=== PATIENT | female | born 1975 | race Caucasian/White ===

== ENCOUNTER → 2018-02-07 15:55 | Outpatient (CLI) | payer BC, SELFPAY | PROVIDERS: Visit Provider Nurse Practitioner Family | DX: R10.9 Unspecified abdominal pain (principal) | CPT/HCPCS: 87086; 87088; 87186 ==

== ENCOUNTER → 2018-07-17 14:29 | Outpatient (CLI) | payer BC, SELFPAY | PROVIDERS: Visit Provider Nurse Practitioner Family | DX: R30.0 Dysuria (principal) | CPT/HCPCS: 87086; 87088; 87186 ==

== ENCOUNTER → 2018-07-24 15:12 | Outpatient (CLI) | payer BC, SELFPAY ==
[2018-07-24 15:14] LABS: Microscopic, Urine URINE MICROSCOPIC (MICROSCOPIC)
[2018-07-24 15:26] LABS: Appearance,Urine CLEAR (Clear); Bilirubin,Urine Negative (Negative); Blood, Urine 1+ (Negative); Color,Urine YELLOW (Yellow); Glucose,Urine (UA) Negative (Negative); Ketones,Urine Negative (Negative); Leukocyte Esterase,Urine TRACE (Negative); Nitrate,Urine Negative (Negative); Protein,Urine Negative (Negative); Urobilinogen,Urine 0.2 EU/dl (0.2)
[2018-07-24 15:38] LABS: Bacteria,Urine 1+ /lpf; RBC,Urine Occasional #/hpf (0-3)
== END ==
PROVIDERS: Visit Provider Nurse Practitioner Family
DX: R30.0 Dysuria (principal)
CPT/HCPCS: 81001; 87086

== ENCOUNTER 2021-04-09 15:19 | Emergency (ER) | payer BC, SELFPAY ==
[2021-04-09 17:39] VITALS: BP 138/64; PULSE 81; RESP 18; TEMP 36.7; O2SAT 97; BMI 27.4
--- NOTE | 2021-04-09 17:49 | HMH.EDUTC ---
[facility] [facility] Disposition Clinical Impression: COVID-19 virus test result unknown Disposition: Home, Self-Care Condition on Discharge: Good Instructions: DI for COVID-19 (Suspected or Confirmed ), Preventing the Spread of Coronavirus Discharge Instructions Additional Instructions: covid swab was sent to lab, call later today for results. self isolate until test results are known to be negative No sign of a bacterial infection. Likely viral. Viruses can take 7-14 days to run their course. Nasal saline and bulb syringe or nose Ambar to remove nasal drainage to help with nasal congestion. Hard to eat, drink, sleep with nasal congestion so important to keep this cleaned out. Monitor temp. Tylenol or Motrin as needed for pain or fever Encourage fluids, water, Gatorade, Powerade, Pedialyte if /toddler/child Warm salt water gargles Warm fluids Sore throat lozenges Sleep elevated Humidifier/vaporizer Follow-up immediately for new or worsening symptoms or no noticeable improvement over the next 48-72 hours. Referrals: Ferny Bass MD [Primary Care Provider] - Time of Disposition: 17:56 Medical Decision Making - Brendon Inquiry Pt receiving controlled substance: No Vital Signs: 04/09/21 17:39 04/09/21 17:52 Temperature 98.1 F 98.1 F Temperature Source Oral Pulse Rate 81 Pulse Rate [Right Brachial] 81 Respiratory Rate 18 18 Blood Pressure 138/64 Blood Pressure [Right Arm] 138/64 Blood Pressure Mean [Right Arm] 88 Blood Pressure Source [Right Arm] Automatic Cuff Blood Pressure Position [Right Arm] Sitting 02 Sat by Pulse Oximetry 97 Oxygen Delivery Method Room Air Orders (Tests/Meds): ORDERS Category Date Time Status Covid-19 Nasal PCR ([facility]) Routine Lab 04/09/21 17:42 Ordered [facility] HPI - General Chief complaint: Urgent [facility] Stated complaint: covid test, poss sinus inf Time Seen by Provider: 04/09/21 17:49 Mode of Arrival: Ambulatory Source of Information: Patient Limitations: No Limitations Description of Symptoms (Recalled from Triage Doc. by RN): PATIENT C/O SINUS PRESSURE AND HEADACHE. RECENTLY TESTED POSITIVE FOR COVID HEENT Symptoms (Recalled from RN notes): Yes Resp Symptoms (Recalled from RN notes): No Skin Symptoms (Recalled from RN notes): No MS Symptoms (Recalled from RN notes): No Functional Status (Recalled from RN notes): WNL - History of Present Illness Provider Complaint: 45 yr old female presents for covid test. tested pos on wed. pt states she is having nasal congestion and headache - Related Data Allergies Allergy/AdvReac Type Severity Reaction Status Date / Time Iodinated Contrast Media Allergy Unknown I-RASH Verified 03/16/19 08:34 [Iodinated Contrast Media - Oral and] - Worker's Comp Is this a Worker's Comp case?: No [facility] History - Hepatitis A Screen Drug use history?: No High risk sexual behaviors?: No History of sexually transmitted infection?: No Currently employed?: No Childcare worker?: No Do you have indoor plumbing?: Yes Do you have electricity?: Yes Attestation statement:: This patient has been screened for Hepatitis A risk factors. I have reviewed the patient's past medical history: Yes Medical History: Reports:: Transient Ischemic Attacks (TIA) Denies:: Diabetes Mellitus Type 1, Diabetes Mellitus Type 2 Other Surgeries: Yes: Tubal Ligation, Other Amputation: No Fractures: No Comment: 2 Laparoscopy, 3 foot surgeries on right foot - Social History Smoking Status: Current every day smoker # Packs/Day (cigarettes): 1 Alcohol Intake: current Alcohol Intake Frequency:: holidays/special occasions only Substance Use Type: denies use Occupational Status: employed Comment: in room to review and discuss. talked w/pt. hearing test good. examined ears, TMJs (right slipping a little out of socket). examined nose and siniuses. Serous otitis media Family Hx:: No significant family history ROS Obtained
[2021-04-09 17:52] VITALS: BP 138/64; PULSE 81; RESP 18; TEMP 36.7; O2SAT 97
== END 2021-04-09 18:01 | disposition home or self-care (01) ==
PROVIDERS: Emergency Provider Nurse Practitioner Family; PCP Emergency Medicine
DX: Z20.822 Contact with and (suspected) exposure to COVID-19 (principal); R51.9 Headache, unspecified; R09.81 Nasal congestion; F17.210 Nicotine dependence, cigarettes, uncomplicated
CPT/HCPCS: 99202; G0463; U0003

== ENCOUNTER → 2021-08-31 14:20 | Outpatient (CLI) | payer BC, SELFPAY | PROVIDERS: Visit Provider Nurse Practitioner | DX: Z20.822 Contact with and (suspected) exposure to COVID-19 (principal) | CPT/HCPCS: C9803; U0003; U0005 ==

== ENCOUNTER → 2021-09-05 14:19 | Outpatient (CLI) | payer BC, SELFPAY ==
[2021-09-05 14:44] LABS: Adenovirus,PCR Not Detected (NotDetected); Bordetella Pertussis Not Detected (NotDetected); Chlamydophila Pneumoniae, PCR Not Detected (NotDetected); Coronavirus 19, PCR Not Detected (NotDetected); Coronavirus 229E Not Detected (NotDetected); Coronavirus NL63 Not Detected (NotDetected); Coronavirus OC43 Not Detected (NotDetected); Coronovirus HKU1,PCR Not Detected (NotDetected); Human Metapneumovirus Not Detected (NotDetected); Influenza A, PCR Not Detected (NotDetected); Influenza AH1, 2009 Not Detected (NotDetected); Influenza AH1, PCR Not Detected (NotDetected); Influenza AH3,PCR Not Detected (NotDetected); Influenza B, PCR Not Detected (NotDetected); Mycoplasma Pneumoniae, PCR Not Detected (NotDetected); Parainfluenza 1, PCR Not Detected (NotDetected); Parainfluenza 2, PCR Not Detected (NotDetected); Parainfluenza 3, PCR Not Detected (NotDetected); Parainfluenza 4, PCR Not Detected (NotDetected); Respiratory Syncytial Virus Not Detected (NotDetected); Rhinovirus/Enterovirus Not Detected (NotDetected)
== END ==
PROVIDERS: Visit Provider Physician Assistant
DX: J06.9 Acute upper respiratory infection, unspecified (principal); Z20.822 Contact with and (suspected) exposure to COVID-19
CPT/HCPCS: 87581; 87632; 87798; C9803; U0003; U0005

== ENCOUNTER 2022-05-03 16:51 | Emergency (ER) | payer BC, SELFPAY ==
[2022-05-03 16:53] VITALS: BP 126/87; PULSE 81; RESP 16; TEMP 36.6; O2SAT 98; BMI 26.7
[2022-05-03 17:43] VITALS: BP 127/73; PULSE 80; RESP 16; O2SAT 98
--- NOTE | 2022-05-03 17:43 | PC.NURSE ---
re cycle vitals. no needs at this time
--- NOTE | 2022-05-03 18:13 | XR_ITS ---
PROCEDURE INFORMATION: Exam: XR Left Foot Exam date and time: 05/03/2022 6:17 PM Age: 46 years old Clinical indication: Pain; Foot; Left; Additional info: Painful sore on foot, R/O fb TECHNIQUE: Imaging protocol: Radiologic exam of the Left foot. Views: 3 or more views. COMPARISON: No relevant prior studies available. FINDINGS: Bones/joints: There is an old healed 3rd metatarsal diaphyseal fracture with mild residual bony deformity. There are multiple ovoid calcifications along the lateral hindfoot and midfoot, likely accessory peroneal ossicle and sesamoid bones, though these could be other chronic dystrophic soft tissue calcifications. These do not have the appearance of acute fractures.No acute fracture or dislocation. There are no lytic skeletal lesions seen. There is an Achilles calcaneal spur. Soft tissues: No radiopaque foreign bodies seen. No soft tissue emphysema. IMPRESSION: 1. No radiopaque foreign body is seen in the soft tissues. No soft tissue emphysema. 2. No findings of osteomyelitis. 3. Old healed 3rd metatarsal diaphyseal fracture. 4. Chronic degenerative changes, as above.
--- NOTE | 2022-05-03 18:13 | HMH.EDGENADL ---
Discharge Plan Disposition Patient Disposition: Home, Self-Care Condition: Good Prescriptions Prescriptions: No Action Mediplast Uppw-Guekgi-Zcsp 40 % adhesive patch,medicated 1 applic topical Q48H Qty: 25 0RF Referrals Follow up/Referrals: Ying Spring PA [Primary Care Provider] - See instructions Elysia Jorge DPM [Staff Physician] - See instructions Activity Restrictions/Add. Instructions Additional Instructions/Restrictions: Follow-up with Dr. Jorge, podiatry. Call tomorrow to make appointment to be seen soon as possible. Clinical Impressions Clinical Impression: Plantar wart of left foot Stand Alone Forms Stand Alone Forms: Work/School Release Discharge ED Provider: Chu Mckeon General Adult HPI General Chief complaint: PAIN Stated complaint: Place on bottom left foot sore Time Seen by Provider: 05/03/22 18:09 Mode of Arrival: Ambulatory Source of Information: Patient Limitations: No Limitations Description of Symptoms (Recalled from ER Triage Doc. by RN): to ed per pvt car with c/o spot on bottom of my lt foot x 1 month pt seen by pcp 1 week ago and was told to use compound w. pt states she has been using medication with no relief of symptoms. pt states md's office was suppose to get me in to see dr jorge. states area is becoming more painful. History of Present Illness HPI narrative: States she is dealing with a sore spot on the bottom of her left foot for over a month. She saw her PCP about a week and a half ago and has been treating it as a callus with salicylic acid as they instructed. She says that she was supposed to be referred to Dr. Jorge for podiatry evaluation but she has not heard back from her PCP at all and does not have an appointment. The office note from her PCP also indicates that an x-ray would be ordered to rule out foreign body, but patient says she did not get an x-ray. She does not recall any sort of injury or potential for foreign body. Patient states that she was given 3 days off work. She returned to work last night and when she woke up today her foot was so painful in the involved area that she cannot put weight on it. Related Data Previous Rx's Medication Instructions Recorded salicylic acid 40 % topical patch 1 applic topical Q48H #25 ea 04/26/22 (Mediplast Hhsh-Ccvdmq-Iiqe Remover) Allergies Allergy/AdvReac Type Severity Reaction Status Date / Time Iodinated Contrast Media Allergy Unknown I-RASH Verified 04/26/22 15:48 [Iodinated Contrast Media - Oral and] [facility] Social History Smoking Status: Never smoker alcohol intake: current substance use type: denies use current occupational status: employed Travel in the last 8 weeks: None ROS Obtained: Yes Systems reviewed as appropriate & no additional complaints except as documented Constitutional Constitutional: Denies fever(s) and Denies weakness Musculoskeletal Musculoskeletal: Reports as per HPI and Denies numbness Integumentary/Breasts Skin/Breast: Reports lesions Neurologic Neurologic: Denies numbness and Denies weakness Physical Exam General General appearance: alert and in no apparent distress Respiratory Respiratory exam: Absent respiratory distress Cardiovascular Cardiovascular exam: Present regular rate Expanded Lower Extremity Exam Left: Bottom foot image: 1. Hyperkeratotic lesion with central small ulcer. No black stippling seen. No surrounding cellulitis. No abscess. No purulent drainage. No foreign body visible or palpable. Neurovascular/Tendon exam: Present normal capillary refill; Absent pulse deficit, motor deficit or sensory deficit Neurological Exam Neurological exam: Present alert and oriented X3 Psychiatric Psychiatric exam: Present normal affect and normal mood Skin Skin exam: Present warm and dry Medical Decision Making Brendon Inquiry Pt receiving controlle
[2022-05-03 19:48] VITALS: BP 145/68; PULSE 78; RESP 16; TEMP 36.6; O2SAT 98
== END 2022-05-03 19:49 | disposition home or self-care (01) ==
PROVIDERS: Emergency Provider Emergency Medicine; PCP Physician Assistant
DX: B07.0 Plantar wart (principal)
CPT/HCPCS: 73630; 99283

== ENCOUNTER → 2022-05-07 07:29 | Outpatient (CLI) | payer BC, SELFPAY ==
[2022-05-07 20:08] LABS: Basophils # 0.1 K/mm3 (0-0.2); Basophils % 1.5 % (0.1-2.0); Eosinophils # 0.2 K/mm3 (0.0-0.4); Eosinophils % 2.1 % (0.1-12.0); Hematocrit 49.7 % (37.0-47.0); Hemoglobin 16.3 g/dL (12.2-16.2); Lymphocytes # 2.4 K/mm3 (0.7-4.5); Lymphocytes % 25.7 % (10-50); Mean Corpuscular HGB Conc 32.9 g/dL (31.8-35.4); Mean Corpuscular Hemoglobin 32.7 pg (27.0-31.2); Mean Corpuscular Volume 99.4 fl (81-99); Mean Platelet Volume 9.3 fl (7.4-10.4); Monocytes # 0.5 K/mm3 (0.1-1.0); Neutrophils # 6.1 K/mm3 (1.8-7.8); Neutrophils % 65.8 % (37.0-80.0); Platelet Count 282 K/mm3 (142-424); Red Cell Distribution Width 13.1 % (11.5-17.5); White Blood Count 9.3 K/mm3 (4.8-10.8)
[2022-05-07 20:50] LABS: Alanine Aminotransferase 16 U/L (12-78); Albumin Level 4.1 g/dl (3.5-5.0); Albumin/Globulin Ratio 1.5 (1.1-1.8); Alkaline Phosphatase 57 U/L (38-126); Anion Gap 15.2 mEq/L (5-15); Aspartate Amino Transferase 26 U/L (14-36); Bilirubin,Total 0.3 mg/dl (0.2-1.3); Blood Urea Nitrogen 12 mg/dl (7-17); Calcium 9.4 mg/dl (8.4-10.2); Carbon Dioxide 23 mmol/L (22.0-30.0); Chloride 104 mmol/L (98-107); Cholesterol 268 mg/dl (140-200); Estimated Glomerular Filt Rate 89 ml/min (>60); GFR (African American) 108 ML/MIN (>60); Globulin 2.7 g/dL (1.3-3.2); Glucose 102 mg/dl (74-100); HDL Cholesterol 54 mg/dl (40-60); Potassium 4.2 mmoL/L (3.5-5.1); Sodium 138 mmol/L (136-145); Total Protein,Serum 6.8 g/dl (6.3-8.2); Triglycerides 145 mg/dl (30-150); VLDL Cholesterol 29 mg/dL (0-40)
[2022-05-07 21:01] LABS: Direct LDL Cholesterol 156.92 mg/dL (100-129)
[2022-05-07 21:20] LABS: 25-OH Vitamin D, Total 26.2 ng/mL (30-100)
[2022-05-07 21:30] LABS: Thyroid Stimulating Hormone 0.32 uIU/mL (0.465-4.68)
== END ==
LOC: LAB.DROPOF 05-08 07:30
PROVIDERS: PCP Physician Assistant; Visit Provider Physician Assistant
DX: R20.2 Paresthesia of skin (principal); E55.9 Vitamin D deficiency, unspecified
CPT/HCPCS: 80053; 80061; 82306; 84443; 85025

== ENCOUNTER 2025-06-17 00:52 | Emergency (ER) | payer OTHER, SELFPAY ==
[2025-06-17 00:58] VITALS: BP 130/62; PULSE 99; RESP 16; TEMP 36.9; O2SAT 97; BMI 20.9
--- OUTSIDE RECORDS SUMMARY | 2025-06-17 00:59 | XMS_ITS ---
Author Organization Unknown ENCOUNTERS Encounter Performer Location Date Diagnosis Diagnosis Status [facility] [place] [place] [address] [place] [address] [id number] LIT [facility] [place] [address] [place] [address] [id number] LIT *Note: Encounters from your own facility or health system may be excluded. Allergies, Adverse Reactions, Alerts Allergen Type Severity Identification Date Iodinated Contrast Media - Oral and drug allergy 0 [id number] Iodinated Contrast Media drug allergy 0 [phone] [id number] Medications Name Date Quantity Days Supplied GPI Number
--- NOTE | 2025-06-17 01:17 | XR_ITS ---
PROCEDURE INFORMATION: Exam: XR Right Forearm Exam date and time: 06/17/2025 1:15 AM Age: 50 years old Clinical indication: Pain; Lower or forearm; Right; Additional info: Foosh pain at wrist area TECHNIQUE: Imaging protocol: Radiologic exam of the right forearm. Views: 2 views. COMPARISON: CR Wrist R 06/17/2025 1:12 AM FINDINGS: Bones/joints: There is a minimally displaced or nondisplaced, slightly comminuted fracture of the distal radius. No definitive extension to the wrist joint, suggesting extra-articular fracture. The bones are mildly osteopenic. Soft tissues: There is mild soft tissue swelling surrounding this joint.. IMPRESSION: There is a minimally displaced or nondisplaced, extra-articular fracture of the distal radius. No definitive extension to the wrist joint, suggesting extra-articular fracture.
--- NOTE | 2025-06-17 01:17 | XR_ITS ---
PROCEDURE INFORMATION: Exam: XR Right Wrist Exam date and time: 06/17/2025 1:12 AM Age: 50 years old Clinical indication: Pain; Wrist; Right; Additional info: Foosh, pain at lateral aspects and on scaphoid TECHNIQUE: Imaging protocol: Radiologic exam of the right wrist. Views: 3 or more views. COMPARISON: CR XR WRIST RT W SCAPHOID 06/17/2025 1:12 AM FINDINGS: Bones/joints: There is a minimally displaced or nondisplaced, slightly comminuted fracture of the distal radius. No definitive extension to the wrist joint, suggesting extra-articular fracture. The bones are mildly osteopenic. Very subtle contour irregularity of the scaphoid bone but no definitive acute fracture is identified. Mild degenerative changes of the carpometacarpal joints. Soft tissues: There is mild soft tissue swelling surrounding this joint. IMPRESSION: There is a minimally displaced or nondisplaced, fracture of the distal radius. No definitive extension to the wrist joint, suggesting extra-articular fracture.
[2025-06-17 01:30] VITALS: BP 126/74; PULSE 97; O2SAT 95
--- NOTE | 2025-06-17 01:38 | ED_ITS ---
Discharge Plan Disposition Patient Disposition: Home, Self-Care Condition: Good Prescriptions Prescriptions: No Action Mediplast Eloe-Hmrfnl-Rhoq 40 % adhesive patch,medicated 1 applic topical Q48H Qty: 25 0RF cholecalciferol (vitamin D3) 25 mcg (1,000 unit) capsule 25 mcg PO DAILY Qty: 30 2RF atorvastatin 10 mg tablet 10 mg PO HS Qty: 90 3RF ergocalciferol (vitamin D2) 1,250 mcg (50,000 unit) capsule 1,250 mcg PO WEEKLY Qty: 14 3RF Referrals Follow up/Referrals: Ying Spring PA [Primary Care Provider, Medical] - See instructions Audie Drummond DO [Staff Physician, Orthopedics] - See instructions Referral Note: Nondisplaced distal radius fracture, Worker's injury Activity Restrictions/Add. Instructions Additional Instructions/Restrictions: You were evaluated in the ER and are believed to be appropriate for discharge at this time. Keep the splint clean and dry. Do not get it wet or apply pressure to it as this will damage the splint. If any damage happens to the splint, return to the ER to have it replaced. Wear the sling for support. Take Tylenol and ibuprofen if needed for pain, do not exceed the recommended dose on the bottle. Drink water and eat a small snack each time you take these medications to avoid side effects. Follow-up with your primary care doctor in 1 to 2 days for follow-up, reevaluation, and to discuss your FMLA/disability paperwork Follow-up with Dr. Drummond's office (orthopedics) for reevaluation and continued management. Call his office in the morning to schedule an appointment. Return to the ER with any new, worsening, or otherwise concerning symptoms. Clinical Impressions Clinical Impression: Distal radius fracture, right Stand Alone Forms Stand Alone Forms: Work/School Release Instructions Patient Instructions: DI for Distal Radius Fracture Print Language Print Language: Khmer Discharge ED Provider: Lucas Duque Adult HPI General Chief complaint: Fall Stated complaint: fall, wrist pain Time Seen by Provider: 06/17/25 01:00 Mode of Arrival: Ambulatory Source of Information: Patient Description of Symptoms (Recalled from ER Triage Doc. by RN): pt presents to the ed ambulatory for evaluation of injury to right wrist that happened s/p glf approx [id number]. Pt reports to being at work and tripping, extending her wrist out to catch her and injurying it in the procsess. Pt denies hitting head, denies LO C. History of Present Illness HPI narrative: 50-year-old female presents to the ER complaining of right wrist pain. Patient states she was at work when she tripped over a pallet of paper and caught herself on an outstretched hand. She has pain in the right wrist and states moving her thumb out (demonstrates abduction) causes pain and points to the area over the scaphoid when indicating where her discomfort is. Patient has no numbness, tingling, or weakness in the fingers. She states she did not hit her head or lose consciousness, she does not take any blood thinners. She denies any daily medications, no known drug allergies. No other complaints or concerns. Related Data Previous Rx's ?Medication ?Instructions ?Recorded salicylic acid 40 % topical patch 1 applic topical Q48 H #25 ea 04/26/22 (Mediplast Uhyh-Phkcej-Znwl Remover) atorvastatin 10 mg tablet 10 mg PO HS #90 tabs 2 cholecalciferol (vitamin D3) 25 25 mcg PO DAILY #30 ca ps 05/08/22 mcg (1,000 unit) capsule ergocalciferol (vitamin D2) 1,250 1,250 mcg PO WEEKLY #14 caps 05/08/22 mcg (50,000 unit) capsule Allergies Allergy/AdvReac Type Severity Reaction Status Date / Time Iodinated Contrast Media Allergy Unknown I-RASH Verified 06/04/22 11:12 (Iodinated Contrast Media - Oral and) [facility] Disclaimer: The information contained in this section may have been updated after the patient was seen, as this information can be updated by other users. Medical History Fracture of third metatarsal bone TIA (transient ischemic attack) Surgical History H/O laparoscopy H/O tubal ligation Social History Smoking Status: Never smoker alcohol intake: current alcohol intake frequency: holidays/special occasions only substance use type: denies use current occupational status: employed Travel in the last 8 weeks?: None Other Medical History Have you received the Flu Vaccine for this season: No Have you received the Pneumonia Vaccine: No ROS Obtained: Yes Systems reviewed as appropriate & no additional complaints except as documented Per HPI Physical Exam General General appearance: alert and in no apparent distress Head Head exam: atraumatic and normocephalic Eye Eye exam: Present PERRL and EOMI ENT ENT exam: Present mucous membranes moist Neck Neck exam: Present normal inspection and full ROM Chest Chest inspection: Present symmetric chest wall rise Respiratory Respiratory exam: Absent respiratory distress or stridor Cardiovascular Cardiovascular exam: Present regular rate and normal rhythm Extremities Exam Extremities exam: Present tenderness (Right wrist primarily at the radial aspect, there is scaphoid TTP as well), normal capillary refill, joint swelling (Mild right wrist/distal radius) and other (Neurovascularly intact throughout); Absent full ROM (Range of motion of the right wrist limited secondary to pain) Neurological Exam Neurological exam: Present alert and oriented X3; Absent motor sensory deficit Psychiatric Psychiatric exam: Present normal affect and normal mood Skin Skin exam: Present warm and dry Medical Decision Making Medical Records Medical records reviewed: Yes I reviewed the patient's medical records. Screening: Per USPSTF and CDC recommendations, given the prevalence of disease in our region, it is our hospital?s policy to screen for HIV and viral Hepatitis for all patients aged 18 and over and those with ongoing risk factors. Brendon Inquiry Pt receiving controlled substance: No Vital Signs: 06/17/25 00:58 06/17/25 01:30 Temperature 98.4 F Temperature Source Oral Pulse Rate 97 H Pulse Rate [Right Radial] 99 H Respiratory Rate 16 Blood Pressure 126/74 Blood Pressure [Right Arm] 130/62 Blood Pressure Mean [Right Arm] 84 Blood Pressure Position [Right Arm] Sitting 02 Sat by Pulse Oximetry 97 95 Oxygen Delivery Method Room Air Orders (Tests/Meds): ORDERS Category Date Time Status Wrist XR right w/scaphoid [XR wrist RT w scaphoid] Stat Exams 06/17/25 01:17 Completed XR forearm RT 2V Stat Exams 06/17/25 01:17 Completed ECG Request Stat Y 06/17/25 01:38 Ordered Medical Decision Narrative: In summary, this 50-year-old female who reports being otherwise healthy presents to the emergency department today with right wrist pain after FOOSH. On initial evaluation patient is hemodynamically stable, afebrile, exam notable for mild swelling with tenderness along the distal radius of the right wrist, tenderness over the right scaphoid, neurovascularly intact, no crepitus or deformity. Differential diagnosis includes but is not limited to fracture, dislocation, scaphoid injury, sprain, strain. Based on these concerns, I ordered x-ray right wrist and forearm. Patient was offered pain medications but declined. X-ray personally interpreted demonstrates nondisplaced distal radius fracture. There does not appear to be any significant angulation of the fracture fragment. See radiology read for final interpretation. Patient has no evidence of nerve injury with full range of motion and sensation of the fingers throughout. Brisk capillary refill and 2+ radial and ulnar pulse. Sugar-tong splint was applied and sling provided for support. Patient tolerated procedure well, neurovascularly intact before and after procedure. There was no reduction or manipulation required so post-splint films were not obtained. Patient is appropriate for outpatient follow-up with orthopedics. She was referred to Dr. Conte for this purpose. Patient was given instructions on splint care, pain management (she did not want any prescriptions for pain medications), follow-up, work restrictions, and return precautions for the ER. She indicated understanding and the patient was discharged in stable condition. Procedures Risk/Benefits of Procedure(s) Were Explained: Yes Orthopedic Splinting/Casting Injury #1: Side: right Upper Extremity Injury Location: forearm and wrist Upper Extremity Immobilizer: sugar tong splint and sling Post Cast/Splinting Neuro Status: intact and no change Post Cast/Splinting Vasc Status: intact and no change Critical Care Critical Care Time Critical Care Time: No
[2025-06-17 02:29] VITALS: BP 164/68; PULSE 74; RESP 16; TEMP 37.2; O2SAT 98
== END 2025-06-17 02:30 | disposition home or self-care (01) ==
PROVIDERS: Emergency Provider Emergency Medicine; PCP Physician Assistant
DX: S52.551A Other extraarticular fracture of lower end of right radius, initial encounter for closed fracture (principal); W01.10XA Fall on same level from slipping, tripping and stumbling with subsequent striking against unspecified object, initial encounter
CPT/HCPCS: 29125; 73090; 73110; 99283; 99284

== ENCOUNTER 2025-06-24 13:20 | Outpatient (CLI) | payer OTHER, SELFPAY ==
--- NOTE | 2025-06-24 13:21 | XR_ITS ---
FINAL REPORT CLINICAL HISTORY: right wrist fx06/16 COMPARISON: 06/17/2025 FINDINGS: RIGHT WRIST Three views were obtained. Plaster cast has been placed in the interval. The distal radial fracture is unchanged from prior exam. There is no significant callus formation. IMPRESSION: No significant change in the distal radial fracture. Reviewed, Interpreted and Dictated by Tonya Moses MD Transcribed by Ana Lilia Fregoso Authenticated and [facility]
== END 2025-06-24 23:59 | disposition home or self-care (01) ==
LOC: RAD 13:21
PROVIDERS: PCP Family Medicine; Visit Provider Physician Assistant Surgical
DX: S52.501D Unspecified fracture of the lower end of right radius, subsequent encounter for closed fracture with routine healing (principal); X58.XXXD Exposure to other specified factors, subsequent encounter
CPT/HCPCS: 73110

== ENCOUNTER 2025-07-19 12:16 | Outpatient (CLI) | payer OTHER, SELFPAY ==
--- NOTE | 2025-07-19 12:18 | XR_ITS ---
FINAL REPORT CLINICAL HISTORY: right wrist fx COMPARISON: 07/04/2025 FINDINGS: AP, oblique, and lateral views of the right wrist were obtained. Plaster cast obscures detail. There has been interval healing of the previously seen distal radius fracture. No new osseous abnormality identified. There is mild degenerative joint disease. No soft tissue abnormality. IMPRESSION: Interval healing distal radius fracture. Reviewed, Interpreted and Dictated by Tonya Moses MD Transcribed by Rhiannon Chin Authenticated and [facility]
== END 2025-07-19 23:59 ==
LOC: RAD 12:17
PROVIDERS: PCP Family Medicine; Visit Provider Physician Assistant Surgical
DX: S52.501D Unspecified fracture of the lower end of right radius, subsequent encounter for closed fracture with routine healing (principal); X58.XXXD Exposure to other specified factors, subsequent encounter
CPT/HCPCS: 73110

== ENCOUNTER 2025-08-16 12:34 | Outpatient (CLI) | payer OTHER, SELFPAY ==
--- NOTE | 2025-08-16 12:39 | XR_ITS ---
FINAL REPORT CLINICAL HISTORY: right wrist fx COMPARISON: 07/19/2025 FINDINGS: AP, oblique, and lateral views of the right wrist were obtained. Plaster cast has been removed. There has been interval healing of the distal radius fracture and ulnar styloid process fracture. No new osseous abnormality identified. There is mild degenerative joint disease. The soft tissues are normal. IMPRESSION: Interval healing of fractures as above. Reviewed, Interpreted and Dictated by Tonya Moses MD Transcribed by Rhiannon Chin Authenticated and [facility]
== END 2025-08-16 23:59 | disposition home or self-care (01) ==
LOC: RAD 12:35
PROVIDERS: PCP Family Medicine; Visit Provider Physician Assistant Surgical
DX: S52.501D Unspecified fracture of the lower end of right radius, subsequent encounter for closed fracture with routine healing (principal); S52.611D Displaced fracture of right ulna styloid process, subsequent encounter for closed fracture with routine healing; X58.XXXD Exposure to other specified factors, subsequent encounter
CPT/HCPCS: 73110